=== PATIENT | female | born 1995 | race Hispanic/Latino ===

== ENCOUNTER 2019-12-22 18:49 | Emergency (ER) | payer OTHER, SELFPAY ==
[~2019-12-22] VITALS: Ht 157.5 cm; Wt 70.9 kg
[2019-12-22 18:49] VITALS: BP 123/59
[2019-12-22] MEDS ORDERED: BENZ200C70 PO (20:17)
[2019-12-22] MEDS ORDERED: VENTAER INH (20:17)
== END 2019-12-22 20:35 | disposition home or self-care (01) ==
LOC: M ED 18:49
DX: J06.9 Acute upper respiratory infection, unspecified (principal); B34.9 Viral infection, unspecified; R05 Cough; R09.81 Nasal congestion; F17.200 Nicotine dependence, unspecified, uncomplicated